=== PATIENT | male | born 1975 | race Caucasian/White ===

== ENCOUNTER 2020-04-13 11:15 | Inpatient (IN) | payer OTHER ==
[~2020-04-13] VITALS: Ht 162.6 cm; Wt 72.2 kg
[2020-04-13 11:25] VITALS: Ht 162.6 cm; Wt 72.2 kg
[2020-04-13 12:09] LABS: BASOPHIL % 0.3 % (0-2); PLATELET COUNT 213 x10^3mcL (130-400); RED CELL DISTRIBUTION WIDTH 12.7 % (11.5-14.5)
[2020-04-13 12:09] LABS: microscopic required? NO
[2020-04-13 12:14] LABS: urine erythrocyte NEGATIVE (NEGATIVE)
[2020-04-13 12:24] LABS: CARBON DIOXIDE 26.7 mmol/L (21-32); CHLORIDE SERUM 104 mmol/L (98-107); CREATININE SERUM 1.3 mg/dL (0.7-1.3); GFR1 > 60 mL/min; GLUCOSE SERUM 106 mg/dL (74-106); POTASSIUM SERUM 4.1 mmol/L (3.5-5.1); SODIUM SERUM 139 mmol/L (136-145)
[2020-04-13 12:30] LABS: AMPHETAMINE QUAL UR NONE DETECTED (See below)
[2020-04-13 12:35] LABS: ALBUMIN 3.4 g/dL (3.4-5.0); ALKALINE PHOSPHATASE 67 U/L (46-116); ALT/SGPT 153 U/L (16-63); AST/SGOT 72 U/L (15-37); BILIRUBIN TOTAL 0.4 mg/dL (0.20-1.00); HDL CHOLESTEROL 55 mg/dL (40-60); LIPASE 201 IU/L (73-393); MAGNESIUM 1.9 mg/dL (1.8-2.4); T4(THYROXINE) 8.1 ug/dL (4.7-13.3); TOTAL PROTEIN, SERUM 6.8 g/dL (6.4-8.2)
[2020-04-13 12:40] LABS: CHOLESTEROL 203 mg/dL (<200)
[2020-04-13 14:55] VITALS: BP 121/71
[2020-04-13 23:15] VITALS: BP 122/68
[2020-04-14 03:10] VITALS: BP 111/66
[2020-04-14 05:37] LABS: BASOPHIL % 0.4 % (0-2); PLATELET COUNT 202 x10^3mcL (130-400); RED CELL DISTRIBUTION WIDTH 12.7 % (11.5-14.5)
[2020-04-14 05:46] LABS: CALCIUM 8.3 mg/dL (8.5-10.1); CHLORIDE SERUM 105 mmol/L (98-107); CREATININE SERUM 1.3 mg/dL (0.7-1.3); GFR1 > 60 mL/min; GLUCOSE SERUM 100 mg/dL (74-106); PHOSPHOROUS 3.3 mg/dL (2.5-4.9); POTASSIUM SERUM 3.8 mmol/L (3.5-5.1); SODIUM SERUM 138 mmol/L (136-145)
[2020-04-14 08:00] VITALS: BP 131/83
[2020-04-14 12:09] VITALS: BP 121/82
[2020-04-14 20:40] VITALS: BP 125/80
[2020-04-15 05:52] VITALS: BP 126/86
[2020-04-15 06:30] LABS: CALCIUM 8.7 mg/dL (8.5-10.1); CARBON DIOXIDE 27.1 mmol/L (21-32); CHLORIDE SERUM 103 mmol/L (98-107); CREATININE SERUM 1.3 mg/dL (0.7-1.3); GFR1 > 60 mL/min; GLUCOSE SERUM 100 mg/dL (74-106); POTASSIUM SERUM 3.9 mmol/L (3.5-5.1); SODIUM SERUM 139 mmol/L (136-145)
[2020-04-15 06:40] LABS: BASOPHIL % 0.2 % (0-2); PLATELET COUNT 219 x10^3mcL (130-400)
[2020-04-15 13:44] VITALS: BP 122/74
[2020-04-15] MEDS ORDERED: ADULT LOW DOSE81 MG PO (16:06)
[2020-04-15 17:12] VITALS: BP 121/84
[2020-04-15 18:15] VITALS: BP 121/84
== END 2020-04-15 19:02 | disposition home or self-care (01) | DRG 281 ==
LOC: ED 11:15 → MU 13:34 → DU 13:34 → IC 16:36 → DU 04-14 16:35 → MU 04-15 15:38
PROVIDERS: Emergency Medicine; Internal Medicine; Internal Medicine Geriatric Medicine; ADMIT Internal Medicine
PROC: B2111ZZ Fluoroscopy of Multiple Coronary Arteries using Low Osmolar Contrast (ICD-10-PCS; 2020-04-15)
PROC: 4A023N7 Measurement of Cardiac Sampling and Pressure, Left Heart, Percutaneous Approach (ICD-10-PCS; principal; 2020-04-15 07:30)
DX: I21.4 Non-ST elevation (NSTEMI) myocardial infarction (principal); I45.2 Bifascicular block; Z60.2 Problems related to living alone; S01.01XA Laceration without foreign body of scalp, initial encounter; F12.20 Cannabis dependence, uncomplicated; G90.8 Other disorders of autonomic nervous system; W18.39XA Other fall on same level, initial encounter; Y93.89 Activity, other specified; Y92.89 Other specified places as the place of occurrence of the external cause; Y99.8 Other external cause status; Z71.51 Drug abuse counseling and surveillance of drug abuser; Z23 Encounter for immunization
CPT/HCPCS: CLHCL; 83880; 90715; C1760; C1769; C1894; C9113; G0378; G0480; J1644; J2001; J2250; J3010; J7030; Q0092; Q9967